=== PATIENT | female | born 1990 ===

== ENCOUNTER 2021-04-04 01:59 | Inpatient (IN) | payer BC ==
[2021-04-04] MEDS ORDERED: hydrALAZINE 20 MG/ML VIAL SLOW IVP PRN ×2 (03:05→10:23)
[2021-04-04] MEDS ORDERED: Butorphanol Tartrate 1 MG/ML VIAL SLOW IVP PRN (03:05)
[2021-04-04] MEDS ORDERED: Ibuprofen 800 MG TAB PO PRN (03:05)
[2021-04-04] MEDS ORDERED: Promethazine HCl 25 MG/ML VIAL IM PRN ×3 (03:05→10:23)
[2021-04-04] MEDS ORDERED: Misoprostol 200 MCG TAB PR PRN (03:05)
[2021-04-04] MEDS ORDERED: Methylergonovine 0.2 MG/ML VIAL IM PRN (03:05)
[2021-04-04] MEDS ORDERED: HYDROcodone/Acetaminophen 5/325 mg Tablet PO PRN ×3 (03:05→10:23)
[2021-04-04] MEDS ORDERED: Ondansetron PF 4 MG/2 ML Vial IVP PRN ×3 (03:05→10:23)
[2021-04-04] MEDS ORDERED: Acetaminophen 500 MG TAB PO PRN (03:05)
[2021-04-04] MEDS ORDERED: Lidocaine 1% (PF) 30 ML VIAL SC PRN (03:05)
[2021-04-04] MEDS ORDERED: Lactated Ringer's 1,000 ML IV SCH ×2 (03:15)
[2021-04-04] MEDS ORDERED: NS w/ Oxytocin 30 units 500 ML IV SCH (03:15)
[2021-04-04 03:26] VITALS: BMI 29.8
[2021-04-04] MEDS ORDERED: Fentanyl 2 mcg/Bup 0.1% Cadd 100 ML ONE (04:19)
[2021-04-04 04:56] LABS: Hemoglobin 12.8 g/dL (12.0-15.5); Mean Corpuscular HGB CONC 31.1 g/dL (32.0-36.0); Mean Corpuscular Volume 80.3 fl (81.6-98.3); Mean Platelet Volume 13.7 fl (7.4-10.4); RBC Distribution Width 13.2 % (11.5-14.5); Red Blood Cell (RBC) Count 5.13 10x6/uL (3.90-5.03); White Blood Cell (WBC) Count 9.1 10x3/uL (3.5-10.5)
[2021-04-04 04:57] LABS: Platelet Count 104 10x3/uL (150-450)
[2021-04-04 05:06] LABS: Hep B Surf Ag Non-Reactive S/CO (NonReactive)
[2021-04-04 05:23] LABS: Syphilis Antibody Nonreactive (Nonreactive); Syphilis Antibody Index 0.02 S/CO (<1.00 Non-Reactive)
[2021-04-04 05:47] LABS: HBSAg Index 0.18 S/CO (0-0.99)
[2021-04-04] MEDS ORDERED: Acetaminophen 325 MG TAB PO PRN (05:50)
[2021-04-04] MEDS ORDERED: Hydrocerin (Eucerin) Cream 120 gm Jar TOP PRN (05:50)
[2021-04-04] MEDS ORDERED: Lactated Ringer's 500 ML IV PRN (05:50)
[2021-04-04] MEDS ORDERED: diphenhydrAMINE 50 MG/ML VIAL IVP PRN (05:50)
[2021-04-04] MEDS ORDERED: ePHEDrine Sulfate 50 MG/10 ML VIAL SLOW IVP PRN (05:50)
[2021-04-04] MEDS ORDERED: Naloxone HCl 0.4 mg/ml Vial IVP PRN ×2 (05:50)
[2021-04-04] MEDS ORDERED: Fentanyl 2 mcg/Bupivacaine 0.1% Cassette 100 ML EPIDURAL SCH (06:00)
[2021-04-04] MEDS ORDERED: Communication Order-Pharmacy FS SCH (06:00)
[2021-04-04 08:05] LABS: SARS-CoV-2 NAA Rapid Test Not Detected (NotDetected)
[2021-04-04] MEDS ORDERED: Bisacodyl 10 MG SUPP PR PRN (10:23)
[2021-04-04] MEDS ORDERED: Zolpidem Tartrate 5 MG TAB PO PRN (10:23)
[2021-04-04] MEDS ORDERED: Boostrix 0.5 ML (Tdap) VIAL IM ONE (10:23)
[2021-04-04] MEDS ORDERED: Lanolin Ointment 7 GM TUBE TOP PRN (10:23)
[2021-04-04] MEDS ORDERED: Milk Of Magnesia 30 ML UDCUP PO PRN (10:23)
[2021-04-04] MEDS ORDERED: Benzocaine-Menthol 82.5 ML CAN TOP PRN (10:23)
[2021-04-04] MEDS ORDERED: Preparation H Ointment 28 GM TUBE PR PRN (10:23)
[2021-04-04] MEDS ORDERED: diphenhydrAMINE 25 MG CAP PO PRN (10:23)
[2021-04-04] MEDS ORDERED: Docusate Calcium (SURFAK) 240 MG CAP PO SCH (10:45)
[2021-04-04] MEDS ORDERED: Prenatal Vitamin 1 TAB PO SCH (11:00)
[2021-04-04] MEDS: Ibuprofen 800 MG TAB PO SCH ×2 (13:32→21:04)
[2021-04-04] MEDS: Ferrous Sulfate 325 MG TAB PO SCH (18:42)
[2021-04-04] MEDS: Docusate Calcium (SURFAK) 240 MG CAP PO SCH (21:04)
[2021-04-05] MEDS: Ibuprofen 800 MG TAB PO SCH ×3 (05:02→21:10)
[2021-04-05 06:56] LABS: Platelet Count 92 10x3/uL (150-450)
[2021-04-05 06:57] LABS: Hemoglobin 8.8 g/dL (12.0-15.5); Mean Corpuscular HGB CONC 31.5 g/dL (32.0-36.0); Mean Corpuscular Hemoglobin 25.3 pg (27.0-33.0); Mean Corpuscular Volume 80.2 fl (81.6-98.3); RBC Distribution Width 13.3 % (11.5-14.5); Red Blood Cell (RBC) Count 3.48 10x6/uL (3.90-5.03); White Blood Cell (WBC) Count 9.4 10x3/uL (3.5-10.5)
[2021-04-05] MEDS: Prenatal Vitamin 1 TAB PO SCH (08:47)
[2021-04-05] MEDS: Ferrous Sulfate 325 MG TAB PO SCH ×2 (08:47→16:40)
[2021-04-05] MEDS: Docusate Calcium (SURFAK) 240 MG CAP PO SCH ×2 (08:47→21:10)
[2021-04-06] MEDS: Ibuprofen 800 MG TAB PO SCH (06:24)
[2021-04-06 07:57] VITALS: BP 93/50; TEMP 98.2
[2021-04-06] MEDS: Docusate Calcium (SURFAK) 240 MG CAP PO SCH (08:28)
[2021-04-06] MEDS: Prenatal Vitamin 1 TAB PO SCH (08:28)
[2021-04-06] MEDS: Ferrous Sulfate 325 MG TAB PO SCH (08:29)
== END 2021-04-06 14:00 | disposition home or self-care (01) | DRG 807 ==
LOC: CSHLD/OP 01:59 → CSHLD 03:14 → CSHPP 11:23
PROVIDERS: ADMIT Student in an Organized Health Care Education/Training Program; ATTEND Student in an Organized Health Care Education/Training Program
PROC: 10E0XZZ Delivery of Products of Conception, External Approach (ICD-10-PCS; principal; 2021-04-04)
PROC: 0KQM0ZZ Repair Perineum Muscle, Open Approach (ICD-10-PCS; 2021-04-04)
DX: O70.1 Second degree perineal laceration during delivery (principal); Z37.0 Single live birth; Z3A.39 39 weeks gestation of pregnancy; Z20.822 Contact with and (suspected) exposure to COVID-19; O69.81X0 Labor and delivery complicated by cord around neck, without compression, not applicable or unspecified; O90.81 Anemia of the puerperium; D50.0 Iron deficiency anemia secondary to blood loss (chronic)
CPT/HCPCS: 36415; 51702; 85027; 86780; 86850; 86900; 86901; 87340; 99285; U0002